=== PATIENT | male | born 1960 | race Two or more races ===

== ENCOUNTER 2022-11-05 21:32 | Emergency (ER) | payer BC, OTHER ==
[~2022-11-05] VITALS: Ht 172.7 cm; Wt 75.0 kg
[2022-11-05] MEDS ORDERED: IBUPROFEN 800 MG TAB PO ONE (22:45)
[2022-11-05 23:07] VITALS: BP 180/100
== END 2022-11-06 00:56 | disposition home or self-care (01) ==
LOC: EDBD 21:32 → ER 21:32
DX: S80.12XA Contusion of left lower leg, initial encounter (principal); M25.552 Pain in left hip; M54.50 Low back pain, unspecified; E78.5 Hyperlipidemia, unspecified; V89.2XXA Person injured in unspecified motor-vehicle accident, traffic, initial encounter; Y93.89 Activity, other specified; Y92.89 Other specified places as the place of occurrence of the external cause; Y99.8 Other external cause status
CPT/HCPCS: 72100; 72170; 73590